=== PATIENT | female | born 1990 | race Caucasian/White ===

== ENCOUNTER 2018-07-04 12:30 | Inpatient (IN) | payer OTHER ==
[2018-07-04] MEDS ORDERED: Lactated Ringer's 1,000 ML IV ONE (13:09)
[2018-07-04 13:13] VITALS: BMI 29.1
[2018-07-04] MEDS ORDERED: Lactated Ringer's 1,000 ML IV SCH (13:15)
[2018-07-04 13:43] LABS: BASO % 0.4 % (0.0-2.0); EOS # 0.1 K/uL (0.0-0.7); EOS % 1.5 % (0.0-4.0); HEMOGLOBIN 12.3 g/dL (11.0-16.0); LYMPH # 1.6 K/uL (1.0-4.3); LYMPH % 22.6 % (20.0-40.0); MEAN CELL VOLUME 92.1 fL (81.0-99.0); MEAN CORPUSCULAR HEMOGLOBIN 31.7 pg (27.0-31.0); MEAN CORPUSCULAR HGB CONC 34.4 g/dL (33.0-37.0); MEAN PLATELET VOLUME 12.1 fL (7.2-11.7); MONO # 0.5 K/uL (0.0-0.8); MONO % 7.6 % (0.0-10.0); NEUT # 4.7 K/uL (1.8-7.0); NEUT % 67.9 % (50.0-75.0); NRBC % 0.1 % (0.0-2.0); RBC 3.88 Mil/uL (3.80-5.20); RED CELL DISTRIBUTION WIDTH 14.9 % (11.5-14.5); WHITE BLOOD COUNT 6.9 K/uL (4.8-10.8)
[2018-07-04 13:50] LABS: SQUAMOUS EPITHIAL 9 /hpf (0-5); URINE BILIRUBIN NEGATIVE (NEGATIVE); URINE BLOOD 1+ (NEGATIVE); URINE CLARITY Clear (Clear); URINE COLOR Yellow (YELLOW); URINE GLUCOSE (UA) NORMAL (Normal); URINE LEUKOCYTE ESTERASE NEG Leu/uL (Negative); URINE PROTEIN NEGATIVE (NEGATIVE); URINE UROBILINOGEN NORMAL mg/dL (0.2-1.0)
--- NOTE | 2018-07-04 13:56 | OBPN ---
Datetime: 07/04/2018 13:41 IP Progress Impression: Normal progression of labor IP Procedures: Sterile Vag Exam IP Progress Plan: Continue present management; Anticipate Vaginal Delivery Membranes, Provider: Intact FHR - Baseline A Provider: 130 IP Progress Note Comment: FHR noted for late decelerations Patient in LDR#1, supine. IVF bolus in progress. Oxygen by mask put on. Patient turned ot left lat eral Cervical exam as above. FHR noted to 155 bpm Assessment: 28 y.o. P1, 38w 1d, nearing end of active phase of labor. Decelerations c/w labor pro tj; response to scalp stimulation. Currently Category 1 tracing. Patient is clinically stable. Plan: 1) As above. 2) Anticipate vaginal delivery - Dr. Vera is informed and is aware Vital Signs Provider: Reviewed; Within Normal Limits NICHD Accel Fetus A IP Provider: 15X15 FHR Category Provider Fetus A: Category II NICHD Variability Prov Fetus A: Moderate 6-25bpm Dilatation, Provider: 8-9 Effacement, Provider: 90 Station, Provider: -2 to -1 NICHD Decel Fetus A IP Provider: Late Datetime: 07/04/2018 13:16 Contraction Comments Provider: 5 minutes Gestation - Est Wks by US: 38w 1d Weight - Estimated: 7lb Presentation-Admit: Vertex
[2018-07-04 13:57] LABS: ALB/GLOB RATIO 1.2 (1.0-2.1); ALBUMIN 3.5 g/dL (3.5-5.0); ALT/SGPT 23 U/L (9-52); AST/SGOT 34 U/L (14-36); BLOOD UREA NITROGEN 11 mg/dL (7-17); CALCIUM 9.3 mg/dl (8.6-10.4); GFR NON-AFRICAN AMERICAN > 60
--- NOTE | 2018-07-04 14:07 | OBHP ---
Datetime: 07/04/2018 13:41 FHR - Baseline A Provider: 130 Vital Signs Provider: Reviewed; Within Normal Limits Dilatation, Provider: 8-9 Station, Provider: -2 to -1 Datetime: 07/04/2018 13:16 IP Adm Impression: Term, intrauterine ; Active labor; Intact Membranes IP Admit Plan: Admit to unit; Initiate labor protocol Admit Comment, IP Provider: This a private patient of Dr. Vera This patient is a 27 y.o.F at 38.1 wk, FDLMP 09/27/17, HARPREET 07/17/18 who presents w/ compla ints of abdominal pain which woke her from sleep morning. Patient reports sharp pain in her abdomen w hich radiates into her pelvis. Reports good movement. Denies fluid leak, gush of fluid, unsure of contractions. Reports vaginal spotting at the same time of the contractions. Denies complaints of chest pain, sob, fevers, chills, n/v/d/c, urinary discomfort OB Hx: June 2017 - Vaginal delivery - 5.5lb, Female - [employer] HX: Reports bartholian cyst which was removed, Onset of menarche: 12; Father of Baby Involved PMH: Hypothyroid, Gestational DM PSH: Bartholian cyst removal ALL: NKDA Home Rx: Levothyroxine 50mcg daily; PNV Social: Denies smoking, drinking, EtOH A/P: 27F 38.1wk w/ GDM presenting w/ contractions and 8cm cervical dilation - active labor Will admit and initiate labor protocol Patient was seen, examined, and discussed w/ attending Dr. Marcelino Larkin DO PGY1 Attending Note: patient seen, evaluated and examined by me with the Resident. Per Dr. Vera, GBS (-). Rh (-). Note: A1 GDM. Fasting F.S. today = 85 (per patient). F.S. log reviewed - adequate control in past 5 days. Category 1 tracing. Patient is clinically stable. Plan: 1) Admit 2) NPO 3) Admission labs 4) Continuuous EFM 5) Epidural 6) Anticipate vaginal delivery - as per, and D/W, Dr. Vera Pelvic Type - PN: Adequate Extremities - PN: Normal Abdomen - PN: Normal Back - PN: Normal Breast - PN: Not Done Lungs - PN: Normal Heart - PN: Normal Thyroid - PN: Not Done Neurologic - PN: Normal HEENT - PN: Normal General - PN: Normal Weight - Estimated: 7lb Presentation-Admit: Vertex Membranes, Provider: Intact Contraction Comments Provider: 5 minutes Comments, ACOG Physical Exam: Abdomen: Gravid. Non tender. Firm with contractions All other systems reviewed and are negative Gestation - Est Wks by US: 38w 1d EGA AdmitDate IP: 38.1 IP Indication for Induction: Not Applicable IP Chief Complaint: Uterine contractions NICHD Variability Prov Fetus A: Moderate 6-25bpm NICHD Accel Fetus A IP Provider: 15X15 FHR Category Provider Fetus A: Category I NICHD Decel Fetus A IP Provider: None Effacement, Provider: 90 Genitourinary Exam: Normal DTRs - PN: Not Done
--- NOTE | 2018-07-04 14:10 | OBADHP ---
Datetime: 07/04/2018 13:41 FHR - Baseline A Provider: 130 Vital Signs Provider: Reviewed; Within Normal Limits Dilatation, Provider: 8-9 Station, Provider: -2 to -1 Datetime: 07/04/2018 13:16 Admit Comment, IP Provider: This a private patient of Dr. Vera This patient is a 27 y.o.F at 38.1 wk, FDLMP 09/27/17, HARPREET 07/17/18 who presents w/ compla ints of abdominal pain which woke her from sleep morning. Patient reports sharp pain in her abdomen w hich radiates into her pelvis. Reports good movement. Denies fluid leak, gush of fluid, unsure of contractions. Reports vaginal spotting at the same time of the contractions. Denies complaints of chest pain, sob, fevers, chills, n/v/d/c, urinary discomfort OB Hx: June 2017 - Vaginal delivery - 5.5lb, Female - [employer] HX: Reports bartholian cyst which was removed, Onset of menarche: 12; Father of Baby Involved PMH: Hypothyroid, Gestational DM PSH: Bartholian cyst removal ALL: NKDA Home Rx: Levothyroxine 50mcg daily; PNV Social: Denies smoking, drinking, EtOH A/P: 27F 38.1wk w/ GDM presenting w/ contractions and 8cm cervical dilation - active labor Will admit and initiate labor protocol Patient was seen, examined, and discussed w/ attending Dr. Marcelino Larkin DO PGY1 Attending Note: patient seen, evaluated and examined by me with the Resident. Per Dr. Vera, GBS (-). Rh (-). Note: A1 GDM. Fasting F.S. today = 85 (per patient). F.S. log reviewed - adequate control in past 5 days. Category 1 tracing. Patient is clinically stable. Plan: 1) Admit 2) NPO 3) Admission labs 4) Continuuous EFM 5) Epidural 6) Anticipate vaginal delivery - as per, and D/W, Dr. Vera Pelvic Type - PN: Adequate Extremities - PN: Normal Abdomen - PN: Normal Back - PN: Normal Breast - PN: Not Done Lungs - PN: Normal Heart - PN: Normal Thyroid - PN: Not Done Neurologic - PN: Normal HEENT - PN: Normal General - PN: Normal Weight - Estimated: 7lb Presentation-Admit: Vertex Membranes, Provider: Intact Contraction Comments Provider: 5 minutes Comments, ACOG Physical Exam: Abdomen: Gravid. Non tender. Firm with contractions All other systems reviewed and are negative Gestation - Est Wks by US: 38w 1d IP Chief Complaint: Uterine contractions NICHD Variability Prov Fetus A: Moderate 6-25bpm NICHD Accel Fetus A IP Provider: 15X15 FHR Category Provider Fetus A: Category I NICHD Decel Fetus A IP Provider: None Effacement, Provider: 90 Genitourinary Exam: Normal DTRs - PN: Not Done EGA AdmitDate IP: 38.1 IP Adm Impression: Term, intrauterine ; Active labor; Intact Membranes IP Admit Plan: Admit to unit; Initiate labor protocol
[2018-07-04 14:33] LABS: HEPATITIS B SURFACE AG Negative (NEGATIVE)
[2018-07-04] MEDS ORDERED: Benzocaine/Menthol 20%-0.5% Topical Spray (60 ml) TOP PRN (15:03)
[2018-07-04] MEDS ORDERED: Oxycodone/Acetaminophen 5/325 mg Tab PO PRN (15:03)
[2018-07-04] MEDS ORDERED: Tdap Vaccine 0.5 ml Vial (10-64 yrs) IM ONE (15:03)
[2018-07-04] MEDS ORDERED: Lidocaine 2% MPF (5 ml) Inj ONE (15:06)
--- NOTE | 2018-07-04 15:13 | OBPN ---
Datetime: 07/04/2018 15:09 IP Progress Impression: Normal progression of labor IP Procedures: Sterile Vag Exam Contraction Comments Provider: q1-4 FHR - Baseline A Provider: 130 IP Progress Note Comment: pt was examined at bed [facility], [place] fd/100/0 anticipote ndvf Dilatation, Provider: 10 Effacement, Provider: 100 Station, Provider: 0 Datetime: 07/04/2018 13:16 Membranes, Provider: Intact NICHD Accel Fetus A IP Provider: 15X15 FHR Category Provider Fetus A: Category I NICHD Variability Prov Fetus A: Moderate 6-25bpm NICHD Decel Fetus A IP Provider: None
[2018-07-04 15:33] LABS: RAPID PLASMA REAGIN NONREACTIVE (NONREACTIVE)
[2018-07-04] MEDS: Oxycodone/Acetaminophen 5/325 mg Tab PO PRN ×2 (16:08→20:34)
[2018-07-05 06:22] LABS: MEAN CELL VOLUME 92.7 fL (81.0-99.0); MEAN CORPUSCULAR HEMOGLOBIN 31.1 pg (27.0-31.0); MEAN CORPUSCULAR HGB CONC 33.5 g/dL (33.0-37.0); MEAN PLATELET VOLUME 11.7 fL (7.2-11.7); RBC 3.11 Mil/uL (3.80-5.20); RED CELL DISTRIBUTION WIDTH 14.8 % (11.5-14.5); WHITE BLOOD COUNT 11.4 K/uL (4.8-10.8)
[2018-07-05 06:27] LABS: HEMOGLOBIN 9.7 g/dL (11.0-16.0)
--- NOTE | 2018-07-05 10:18 | OBDS ---
DELIVERY PERSONNEL Delivery Doctor: Milan Vera MD Manufacturing Weaver: Monet Love RN MATERNAL INFORMATION Delivery Anesthesia: Local Medications in Delivery: pitocin 20 Estimated Blood Loss (ml): 300 Placenta Cultured: Yes Maternal Complications: None Other Maternal Complications: none RN Comments: [id number] GIRL 9/[address] ,by Dr[address] Benson.No abnormalities,seen _ examined by . Dr. VERA attended patient with orders noted,Baby stable Provider Comments: dr vera baby deliverd in [place]. emnd fab no com LABOR SUMMARY EDC: 07/17/2018 00:00 No. Babies in Womb: 1 Attempted: No Labor Anesthesia: None LABOR INFORMATION Onset of Labor: 07/04/2018 09:00 Oxytocin: N/A Group B Beta Strep: Negative Steroids Given: None Reason Steroids Not Administered: Not Applicable MEMBRANES Membranes Rupture Method: Artificial Rupture of Membranes: 07/04/2018 14:28 Length of Rupture (hrs): 0.40 Amniotic Fluid Color: Light Meconium Amniotic Fluid Amount: Scant Amniotic Fluid Odor: Normal STAGES OF LABOR Stage 3 hrs: 0 Stage 3 min: 2 Total Time in Labor hrs: 5 Total Time in Labor min: 54 VAGINAL DELIVERY Episiotomy: None Laceration Extension: N/A Laceration Type: None Initial Vag Sponge Count: 10 Final Vag Sponge Count: 10 Initial Vag Sharps Count: 1 Final Vag Sharps Count: 1 Sponge Count Correct: Yes Sharps Count Correct: Yes Count Comment: correct BABY A INFORMATION Delivery Date/Time: 07/04/2018 14:52 Method of Delivery: Vaginal Born in Route : No (Annotations: Data stored by [facility] on behalf of user) : N/A Forceps: N/A Vacuum Extraction: N/A Shoulder Dystocia : Yes SHOULDER DYSTOCIA BABY A Infant Delivery Date/Time: 07/04/2018 14:52 PRESENTATION/POSITION BABY A Presentation: Cephalic Cephalic Presentation: Vertex Vertex Position: carli Breech Presentation: N/A (Annotations: Data stored by [facility] on behalf of user) PLACENTA INFORMATION BABY A Placenta Delivery Time : 07/04/2018 14:54 Placenta Method of Delivery: Spontaneous Placenta Status: Delivered SCORES BABY A Heart Rate 1 min: >100 bpm Resp Effort 1 min: Good Cry Reflex Irritability 1 min: Cough or Sneeze or Pulls Away Muscle Tone 1 min: Active Motion Color 1 min: Body [place], Extremities Blue SCORE 1 MIN: 9 Heart Rate 5 min: >100 bpm Resp Effort 5 min: Good Cry Reflex Irritability 5 min: Cough or Sneeze or Pulls Away Muscle Tone 5 min: Active Motion Color 5 min: Body [place], Extremities Blue SCORE 5 MIN: 9 INFANT INFORMATION BABY A Gestational Age at Delivery: 38.0 Gestational Status: Term Infant Outcome : Liveborn Condition : Stable Sex: Female IDENTIFICATION/MEDS BABY A ID Band Number: [id number] ID Band Location: Left Leg; Left Arm Sensor Applied: Yes Sensor Number: [id number] Sensor Location : Cord Clamp WEIGHT/LENGTH BABY A Infant Birthweight (gms): 2875 Infant Weight (lb): 6 Infant Weight (oz): 5 Length Inches: 18.50 Infant Length cms: 47.0 CORD INFORMATION BABY A No. Cord Vessels: 3 Nuchal Cord : N/A Cord Blood Taken: Yes Infant Suction: Mouth; Nose ASSESSMENT BABY A Complications: None Physical Findings at Delivery: Within Normal Limits Infant Respirations: Appears Normal Marketing Program Manager/ALS Called : No Infant Care By: dr jorge Transferred To: Remains with Mother
--- NOTE | 2018-07-05 10:21 | OBPPN ---
Datetime: 07/05/2018 10:18 PP Pain Prov: Within normal limits PP Nausea Prov: Denies PP Flatus Prov: Yes PP Abdomen/Uterus Prov: Normal PP Lochia Prov: Normal PP Impression Prov: Normal progression PP Progress Note Prov: pt was examined at bed side, pain under contol,no n/v, tolerating deit,voidin g,min lochia, fl+ ppd#1 s/p nvd cont pnv cnt pain ma encouahe ambulaio Vital Signs Provider PP: Reviewed; Within Normal Limits
[2018-07-05] MEDS ORDERED: Levothyroxine 50 MCG TAB PO SCH (11:15)
[2018-07-05] MEDS: Levothyroxine 50 MCG TAB PO SCH (15:34)
[2018-07-06] MEDS: Levothyroxine 50 MCG TAB PO SCH (06:25)
--- NOTE | 2018-07-06 06:37 | OBDCSUM ---
Datetime: 07/06/2018 06:35 Discharged to, Provider: Home Follow up at, Provider: 3we Discharge Diagnosis, Provider: Term Delivered Follow up in weeks, Provider: dr joni Hager Activity Restrictions: No driving; Minimize walking; Minimize stair-climbing; No sexual activi ty; Nothing in vagina - Diaz, tampons, douche Discharge Comment, Provider: sex wallace crowder
--- NOTE | 2018-07-06 06:37 | OBPPN ---
Datetime: 07/06/2018 06:34 PP Pain Prov: Within normal limits PP Nausea Prov: Denies PP Flatus Prov: Yes PP Abdomen/Uterus Prov: Normal PP Lochia Prov: Normal PP Extremities Prov: Normal PP Impression Prov: Normal progression PP Plan Prov: Continue present management PP Progress Note Prov: pt was seen at bed side, pain under ontrol,no n. , tolerating deit, min lochi a, fltus+ ppd#2 dc home motrin prn f/u in 6wee Vital Signs Provider PP: Reviewed; Within Normal Limits
[2018-07-06 17:29] VITALS: BP 102/64
[2018-07-07 00:29] VITALS: PULSE 96; RESP 20; TEMP 98.7; O2SAT 98
== END 2018-07-06 18:05 | disposition home or self-care (01) | DRG 372 ==
LOC: C.EROB 12:30 → C.4D 13:09 → C.4M 17:10
PROVIDERS: ADMIT Obstetrics & Gynecology; ATTEND Obstetrics & Gynecology
PROC: 10E0XZZ Delivery of Products of Conception, External Approach (ICD-10-PCS; principal; 2018-07-04)
PROC: 10907ZC Drainage of Amniotic Fluid, Therapeutic from Products of Conception, Via Natural or Artificial Opening (ICD-10-PCS; 2018-07-04)
DX: O24.420 Gestational diabetes mellitus in childbirth, diet controlled (principal); O99.284 Endocrine, nutritional and metabolic diseases complicating childbirth; E03.9 Hypothyroidism, unspecified; O66.0 Obstructed labor due to shoulder dystocia; O76 Abnormality in fetal heart rate and rhythm complicating labor and delivery; Z3A.38 38 weeks gestation of pregnancy; Z37.0 Single live birth